=== PATIENT | male | born 1980 | race Caucasian/White ===

== ENCOUNTER 2022-12-20 23:30 | Emergency (ER) | payer BC, SELFPAY ==
[2022-12-20 23:30] VITALS: BP 161/99; PULSE 110; RESP 16; TEMP 36.6; O2SAT 98; BMI 42.6
[2022-12-21] VITALS (7 sets, daily range): BP systolic 135–158; BP diastolic 77–91; PULSE 98–111; RESP 18; TEMP 36.8; O2SAT 94–99
--- NOTE | 2022-12-21 00:01 | HMH.EDNVD ---
Discharge Plan Disposition Chief Complaint: Nausea/Vomiting/Diarrhea Clinical Impressions Clinical Impression: Adverse drug effect Instructions Patient Instructions: DI for Nausea -- Adult Discharge ED Provider: Tom (ED)Deric Nausea/Vomiting/Diarrhea HPI General Chief complaint: Nausea/Vomiting/Diarrhea Stated complaint: intoxication from delta 8 Time Seen by Provider: 12/21/22 00:01 Mode of Arrival: EMS Source of Information: Patient, EMS and Medical Record Limitations: No Limitations Description of Symptoms (Recalled from ER Triage Doc. by RN): Patient arrived via ems. Per pt, he took a delta 8 gummie tonight to relax and began to feel anxious. Since arriving to the ER patient has also began vomiting and has an elevated heart rate. History of Present Illness HPI Narrative: took thc gummie delta 8 and has nausea and inc hr complaint: vomiting Onset (ago): hour(s) Associated Abdominal Pain: No Severity: moderate Context: other (see above ) Associated symptoms: denies other symptoms Related Data Allergies Allergy/AdvReac Type Severity Reaction Status Date / Time No Known Allergies Allergy Verified 12/20/22 23:37 [facility] Disclaimer: The information contained in this section may have been updated after the patient was seen, as this information can be updated by other users. Social History Smoking Status: Never smoker alcohol intake: never current occupational status: employed Travel in the last 8 weeks: None ROS Obtained: Yes All systems reviewed & no additional complaints except as documented Physical Exam General General appearance: alert and obese Head Head exam: normocephalic Eye Eye exam: Present PERRL and EOMI ENT ENT exam: Present mucous membranes moist Neck Neck exam: Present trachea midline Respiratory Respiratory exam: Absent respiratory distress Cardiovascular Cardiovascular exam: Present regular rate Abdominal Exam Abdominal exam: Present soft Extremities Exam Extremities exam: Present full ROM Neurological Exam Neurological exam: Present alert, oriented X3 and CN II-XII intact; Absent motor sensory deficit Skin Skin exam: Absent rash Medical Decision Making Medical Records Medical records reviewed: Yes I reviewed the patient's medical records. Andry Inquiry Pt receiving controlled substance: No Vital Signs: 12/20/22 23:30 12/21/22 00:30 12/21/22 01:00 Temperature 98 F Temperature Source Oral Pulse Rate 108 H 105 H Pulse Rate [Apical] 110 H Respiratory Rate 16 Blood Pressure 140/88 158/91 H Blood Pressure [Right Arm] 161/99 H Blood Pressure Mean Blood Pressure Mean [Right Arm] 119 Blood Pressure Source Blood Pressure Source [Right Arm] Automatic Cuff Blood Pressure Position Blood Pressure Position [Right Arm] Sitting 02 Sat by Pulse Oximetry 98 96 96 Oxygen Delivery Method Room Air Room Air Room Air 12/21/22 01:30 12/21/22 03:00 12/21/22 03:30 Temperature Temperature Source Pulse Rate 111 H 99 H 98 H Pulse Rate [Apical] Respiratory Rate Blood Pressure 154/88 H 141/77 H 146/82 H Blood Pressure [Right Arm] Blood Pressure Mean 102 94 Blood Pressure Mean [Right Arm] Blood Pressure Source Blood Pressure Source [Right Arm] Blood Pressure Position Blood Pressure Position [Right Arm] 02 Sat by Pulse Oximetry 98 98 95 Oxygen Delivery Method Room Air 12/21/22 04:11 12/21/22 04:00 Temperature 98.2 F Temperature Source Oral Pulse Rate 98 H 104 H Pulse Rate [Apical] Respiratory Rate 18 Blood Pressure 145/80 H 135/78 Blood Pressure [Right Arm] Blood Pressure Mean Blood Pressure Mean [Right Arm] Blood Pressure Source Automatic Cuff Blood Pressure Source [Right Arm] Blood Pressure Position Sitting Blood Pressure Position [Right Arm] 02 Sat by Pulse Oximetry 94 L Oxygen Delivery Method Room Air Room Air Lab Data Lab results reviewed: Yes I reviewed t
[2022-12-21 00:05] LABS: Basophils # 0.2 K/mm3 (0-0.2); Basophils % 1.3 % (0.1-2.0); Eosinophils # 1.2 K/mm3 (0.0-0.4); Eosinophils % 7.4 % (0.1-12.0); Hematocrit 46.1 % (42.0-52.0); Lymphocytes # 7.1 K/mm3 (0.7-4.5); Lymphocytes % 45.2 % (10-50); Mean Corpuscular HGB Conc 32.6 g/dL (31.8-35.4); Mean Corpuscular Hemoglobin 28.6 pg (27.0-31.2); Mean Corpuscular Volume 87.6 fl (80-94); Mean Platelet Volume 8.5 fl (7.4-10.4); Monocytes # 0.7 K/mm3 (0.1-1.0); Monocytes % 4.2 % (1.7-9.3); Neutrophils # 6.6 K/mm3 (1.8-7.8); Neutrophils % 41.8 % (37.0-80.0); Platelet Count 377 K/mm3 (142-424); Red Blood Count 5.26 M/mm3 (4.60-6.20); Red Cell Distribution Width 13.5 % (11.5-17.5); White Blood Count 15.7 K/mm3 (4.8-10.8)
[2022-12-21 00:07] LABS: Chloride 104 mmol/L (98-107); Sodium 139 mmol/L (136-145)
[2022-12-21 00:09] LABS: Blood Urea Nitrogen 22 mg/dl (9-20); Creatinine Clearance Estimated 77 mL/min (50-200); Estimated Glomerular Filt Rate 61 ml/min (>60); GFR (African American) 74 ML/MIN (>60)
[2022-12-21 00:10] LABS: Alanine Aminotransferase 44 U/L (12-78); Albumin Level 4.5 g/dl (3.5-5.0); Albumin/Globulin Ratio 1.6 (1.1-1.8); Alkaline Phosphatase 52 U/L (38-126); Aspartate Amino Transferase 41 U/L (17-59); Bilirubin,Total 0.3 mg/dl (0.2-1.3); Calcium 8.3 mg/dl (8.4-10.2); Carbon Dioxide 27 mmol/L (22.0-30.0); Globulin 2.8 g/dL (1.3-3.2); Glucose 132 mg/dl (74-100); Total Protein,Serum 7.3 g/dl (6.3-8.2)
[2022-12-21 00:12] LABS: MANUAL DIFFERENTIAL MANUAL DIFFERENTIAL (MANUAL DIFF)
--- NOTE | 2022-12-21 00:13 | PC.NURSE ---
lab called a critical potassium of 3.0. MD notified. No new orders.
[2022-12-21 00:25] LABS: Eosinophils % 5 % (0-3); Lymphocytes % 51 % (10-50); Monocytes % 3 % (2-9); Neutrophils % 39 % (42-76); Platelet Estimate Normal; RBC Morphology Normal; Total Cells Counted 100
== END 2022-12-21 05:05 | disposition home or self-care (01) ==
LOC: ER 12-21 05:05
PROVIDERS: Emergency Provider Emergency Medicine; PCP Pediatrics
DX: T40.715A Adverse effect of cannabis, initial encounter (principal); X58.XXXA Exposure to other specified factors, initial encounter
CPT/HCPCS: 80053; 85007; 85025; 96361; 96374; 99283; 99284; J2405

== ENCOUNTER 2023-03-30 01:17 | Emergency (ER) | payer BC, SELFPAY ==
[2023-03-30] VITALS (9 sets, daily range): BP systolic 120–164; BP diastolic 65–110; PULSE 72–83; RESP 16–19; TEMP 36.7–37.1; O2SAT 93–100; BMI 40.0
[2023-03-30 01:39] LABS: Microscopic, Urine URINE MICROSCOPIC (MICROSCOPIC)
--- NOTE | 2023-03-30 01:39 | CT_ITS ---
PROCEDURE INFORMATION: Exam: CT Abdomen And Pelvis Without Contrast Exam date and time: 03/30/2023 1:47 AM Age: 42 years old Clinical indication: Abdominal pain; Flank; Right; Additional info: Flank pain TECHNIQUE: Imaging protocol: Computed tomography of the abdomen and pelvis without contrast. Radiation optimization: All CT scans at this facility use at least one of these dose optimization techniques: automated exposure control; mA and/or kV adjustment per patient size (includes targeted exams where dose is matched to clinical indication); or iterative reconstruction. REPORTING DATA: Count of CT and Cardiac NM exams in prior 12 months: This patient has received 0 known CTs and 0 known cardiac nuclear medicine studies in the 12 months prior to the current study. COMPARISON: No relevant prior studies available. FINDINGS: Liver: Hepatic steatosis. Gallbladder and bile ducts: No acute findings, calcified stones or ductal dilation. Pancreas: No acute findings, focal abnormality or ductal dilation. Spleen: No splenomegaly or focal abnormality. Adrenal glands: Normal. No mass. Kidneys and ureters: There is a 5 mm calculus in the distal right ureter just above the ureteral vesicular junction. There is mild right-sided pelvicaliectasis and hydroureter. Nonobstructing intrarenal calculi on the left. Stomach and bowel: No obstruction. No mucosal thickening. Appendix: No evidence of appendicitis. Intraperitoneal space: No free air. No significant fluid collection. Vasculature: No abdominal aortic aneurysm. Lymph nodes: Well-circumscribed oval fluid density structure along the left external iliac chain which is 3.7 by 5.6 cm. Urinary bladder: Unremarkable as visualized. Reproductive: Unremarkable as visualized. Bones/joints: No acute fracture. Soft tissues: No acute findings. IMPRESSION: 1. 5 mm calculus in the distal right ureter with associated obstructive uropathy. 2. Hepatic steatosis. 3. Oval fluid density structure along the left external iliac chain may represent a nonspecific cyst or possibly intra-abdominal testicle. Correlate clinically.
[2023-03-30 01:41] LABS: Appearance,Urine CLEAR (Clear); Bilirubin,Urine Negative (Negative); Blood, Urine TRACE-I (Negative); Color,Urine YELLOW (Yellow); Glucose,Urine (UA) Negative (Negative); Ketones,Urine Negative (Negative); Leukocyte Esterase,Urine Negative (Negative); Nitrate,Urine Negative (Negative); PH,Urine 5.5 (5.0-8.5); Protein,Urine Negative (Negative); Specific Gravity, Urine 1.025 (1.005-1.030); Urobilinogen,Urine 0.2 EU/dl (0.2)
[2023-03-30 01:45] LABS: Basophils # 0.1 K/mm3 (0-0.2); Basophils % 0.8 % (0.1-2.0); Eosinophils # 0.3 K/mm3 (0.0-0.4); Eosinophils % 2.9 % (0.1-12.0); Hematocrit 48.3 % (42.0-52.0); Hemoglobin 15.5 g/dL (14.1-18.0); Lymphocytes # 4.7 K/mm3 (0.7-4.5); Lymphocytes % 41.7 % (10-50); Mean Corpuscular Hemoglobin 27.8 pg (27.0-31.2); Mean Platelet Volume 7.8 fl (7.4-10.4); Monocytes # 0.5 K/mm3 (0.1-1.0); Monocytes % 4.6 % (1.7-9.3); Neutrophils # 5.6 K/mm3 (1.8-7.8); Neutrophils % 50.1 % (37.0-80.0); Platelet Count 290 K/mm3 (142-424); Red Blood Count 5.55 M/mm3 (4.60-6.20); Red Cell Distribution Width 13.3 % (11.5-17.5); White Blood Count 11.2 K/mm3 (4.8-10.8)
[2023-03-30 01:49] LABS: Alanine Aminotransferase 58 U/L (12-78); Albumin Level 4.3 g/dl (3.5-5.0); Albumin/Globulin Ratio 1.4 (1.1-1.8); Alkaline Phosphatase 55 U/L (38-126); Amylase 105 U/L (30-110); Anion Gap 13.8 mEq/L (5-15); Aspartate Amino Transferase 45 U/L (17-59); Bilirubin,Total 0.3 mg/dl (0.2-1.3); Blood Urea Nitrogen 17 mg/dl (9-20); Calcium 8.7 mg/dl (8.4-10.2); Carbon Dioxide 29 mmol/L (22.0-30.0); Chloride 101 mmol/L (98-107); Creatinine Clearance Estimated 167 mL/min (50-200); Estimated Glomerular Filt Rate 74 ml/min (>60); GFR (African American) 89 ML/MIN (>60); Globulin 3.1 g/dL (1.3-3.2); Glucose 116 mg/dl (74-100); Lipase 139 U/L (23-300); Potassium 3.8 mmoL/L (3.5-5.1); Sodium 140 mmol/L (136-145); Total Protein,Serum 7.4 g/dl (6.3-8.2)
[2023-03-30 02:04] LABS: Bacteria,Urine Trace /lpf; Squamous Epithelial Cell,Urine Occasional #/hpf (0-5); WBC,Urine Occasional #/hpf (0-3)
--- NOTE | 2023-03-30 02:15 | HMH.EDABDPAI ---
Discharge Plan Disposition Patient Disposition: Home, Self-Care Chief Complaint: Abdominal Pain Prescriptions Prescriptions: No Action No Known Home Medications Referrals Follow up/Referrals: River Cabrera [Primary Care Provider] - See instructions Ruiz Eason MD [Referring] - See instructions Clinical Impressions Clinical Impression: Renal colic on right side Instructions Patient Instructions: DI for Kidney Stones Discharge ED Provider: Tom (ED),Deric Vides Abdominal Pain HPI General Chief Complaint: Abdominal Pain Stated Complaint: Pain right side radiating to back Time Seen by Provider: 03/30/23 02:00 Mode of Arrival: Ambulatory Source of Information: Patient, Spouse and Medical Record Limitations: No Limitations Description of Symptoms (Recalled from ER Triage Doc. by RN): pt states pain in the lower right abdoman that radiates around to his back. the pt states the pain is an 8/10 with nausea. pt states that he also feels like he is unable to urinate or have a bowel movement and that his stomach feels like its dropping History of Present Illness HPI narrative: acute onset of rt lower abd pain - no hx of kidney stoneds MD complaint: abdominal pain and flank pain Onset (ago): hour(s) Consistency: intermittent Location: R flank Severity: moderate Associated symptoms: denies other symptoms Related Data Home Medications Medication Instructions Recorded Confirmed No Known Home Medications 03/30/23 03/30/23 Allergies Allergy/AdvReac Type Severity Reaction Status Date / Time No Known Allergies Allergy Verified 12/20/22 23:37 [facility] Disclaimer: The information contained in this section may have been updated after the patient was seen, as this information can be updated by other users. Social History (Updated 12/21/22 @ 04:49 by Deric Santos (ED), ) Smoking Status: Light tobacco smoker alcohol intake: never current occupational status: employed Travel in the last 8 weeks: None ROS Obtained: Yes All systems reviewed & no additional complaints except as documented Physical Exam General General appearance: alert Head Head exam: normocephalic Eye Eye exam: Present PERRL and EOMI ENT ENT exam: Present mucous membranes moist Neck Neck exam: Present trachea midline Respiratory Respiratory exam: Present normal lung sounds bilaterally; Absent respiratory distress Cardiovascular Cardiovascular exam: Present regular rate Abdominal Exam Abdominal exam: Present soft and tenderness; Absent guarding or rebound Abdominal tenderness: Present RLQ and moderate Extremities Exam Extremities exam: Present full ROM Back Exam Back exam: Present CVA tenderness (R) Neurological Exam Neurological exam: Present alert, oriented X3 and CN II-XII intact; Absent motor sensory deficit Psychiatric Psychiatric exam: Present normal affect Skin Skin exam: Absent rash Medical Decision Making Medical Records Medical records reviewed: Yes I reviewed the patient's medical records. Andry Inquiry Pt receiving controlled substance: No Vital Signs: 03/30/23 01:18 03/30/23 02:00 03/30/23 02:30 Temperature 98.8 F Temperature Source Oral Pulse Rate 76 72 Pulse Rate [Left] 81 Respiratory Rate 18 18 16 Blood Pressure 153/99 H 147/97 H Blood Pressure [Right Arm] 164/110 H Blood Pressure Mean 117 111 Blood Pressure Mean [Right Arm] 128 02 Sat by Pulse Oximetry 100 95 96 Oxygen Delivery Method Room Air 03/30/23 03:00 03/30/23 03:34 Temperature Temperature Source Pulse Rate 76 81 Pulse Rate [Left] Respiratory Rate Blood Pressure 149/97 H 139/91 H Blood Pressure [Right Arm] Blood Pressure Mean Blood Pressure Mean [Right Arm] 02 Sat by Pulse Oximetry 96 96 Oxygen Delivery Method Room Air Room Air Lab Data Lab results reviewed: Yes I reviewed the patient's lab results. Lab Results 03/30/23 01:23: Urine Color Yellow, Urine Appearan
--- NOTE | 2023-03-30 03:36 | PC.NURSE ---
Pt ambulatory to bathroom and back to bed. Advised he felt better . No other needs voiced at this time.
== END 2023-03-30 05:37 | disposition home or self-care (01) ==
PROVIDERS: Emergency Provider Emergency Medicine; PCP Pediatrics
DX: N23 Unspecified renal colic (principal); F17.210 Nicotine dependence, cigarettes, uncomplicated
CPT/HCPCS: 74176; 80053; 81001; 82150; 83690; 85025; 96360; 96361; 96374; 96375; 99285; J2405